=== PATIENT | female | born 2000 | race Caucasian/White ===

== ENCOUNTER 2023-12-22 13:18 | Emergency (ER) | payer OTHER ==
[2023-12-22 13:34] VITALS: BP 133/69; PULSE 107; RESP 18; TEMP 98.9; BMI 36.6
[2023-12-22] MEDS ORDERED: AMPICILLIN NA/SULBACTAM NA 3 GM/100 ML BAG IVPB ONE (14:52)
[2023-12-22] MEDS ORDERED: ACETAMINOPHEN INJECTION 100 ML IVPB ONE (14:52)
[2023-12-22] MEDS: AMPICILLIN NA/SULBACTAM NA 3 GM in SODIUM CHLORIDE 100 ML IVPB ONE (15:04)
[2023-12-22] MEDS: ACETAMINOPHEN 1000 MG/100 ML BAG IVPB ONE (15:04)
[2023-12-22 15:17] LABS: BASO % 0.2 % (0-2.0); EOS % 0.3 % (0-4.5); HEMATOCRIT 36.1 % (32.4-45.2); LYMPH % 16.4 % (8-40); MCH 25.5 pg (25.7-33.7); MCHC 33.1 g/dl (32.0-36.0); MEAN CELL VOLUME 76.9 fl (80-96); MEAN PLT VOLUME 10.3 fl (7.5-11.1); MONO % 10.6 % (3.8-10.2); NEUT % 72.5 % (42.8-82.8); PLATELET COUNT 140 10^3/uL (134-434); RBC 4.69 M/mm3 (3.60-5.2); RDW 13.7 % (11.6-15.6); WHITE BLOOD COUNT 6.9 K/mm3 (4.0-10.0)
[2023-12-22 15:52] LABS: POTASSIUM 4.4 mmol/L (3.5-5.1)
[2023-12-22 15:54] LABS: CALCIUM 8.6 mg/dL (8.5-10.1)
[2023-12-22 15:55] LABS: ALBUMIN 3.4 g/dl (3.4-5.0); BLOOD UREA NITROGEN 10.8 mg/dL (7-18)
[2023-12-22 15:58] LABS: CREATININE 0.9 mg/dL (0.55-1.3)
[2023-12-22 15:59] LABS: BILIRUBIN,TOTAL 0.4 mg/dL (0.2-1); TOT PROT 7.2 g/dl (6.4-8.2)
[2023-12-22] MEDS ORDERED: KETOROLAC TROMETHAMINE 15 MG/ML VIAL ONE (18:10)
[2023-12-22] MEDS ORDERED: BACITRACIN ZINC 15 GM TUBE TOPICAL OINTMENT ONE (18:10)
[2023-12-22] MEDS: BACITRACIN ZINC 15 GM TUBE TOPICAL OINTMENT TP ONE (18:15)
[2023-12-22] MEDS: KETOROLAC TROMETHAMINE 15 MG/ML VIAL IVPUSH ONE (18:15)
== END 2023-12-22 18:30 | disposition home or self-care (01) ==
LOC: JER 13:18 → JERFT 13:18 → JER 18:30
PROC: 3E03329 Introduction of Other Anti-infective into Peripheral Vein, Percutaneous Approach (ICD-10-PCS; principal; 2023-12-22)
PROC: 3E033NZ Introduction of Analgesics, Hypnotics, Sedatives into Peripheral Vein, Percutaneous Approach (ICD-10-PCS; 2023-12-22)
PROC: 3E0333Z Introduction of Anti-inflammatory into Peripheral Vein, Percutaneous Approach (ICD-10-PCS; 2023-12-22)
DX: T65.891A Toxic effect of other specified substances, accidental (unintentional), initial encounter (principal); T20.42XA Corrosion of unspecified degree of lip(s), initial encounter; Z77.098 Contact with and (suspected) exposure to other hazardous, chiefly nonmedicinal, chemicals; Y99.0 Civilian activity done for income or pay
CPT/HCPCS: 36415; 70491-TC; 80053; 84703; 85025; 96365; 96375; 99285-25; J0131; Q9967